=== PATIENT | female | born 1985 | race Two or more races ===

== ENCOUNTER 2017-02-10 23:13 | Observation (INO) | payer MEDICAID, OTHER | END 2017-02-11 00:13 | disposition home or self-care (01) | DRG 566 | LOC: LDRP 23:13 | PROVIDERS: ADMIT Specialist; ATTEND Specialist | DX: O26.893 Other specified pregnancy related conditions, third trimester (principal); O24.419 Gestational diabetes mellitus in pregnancy, unspecified control; M54.9 Dorsalgia, unspecified; R10.9 Unspecified abdominal pain; Z3A.34 34 weeks gestation of pregnancy | CPT/HCPCS: 59025; 81002; G0378 ==

== ENCOUNTER 2017-03-01 16:04 | Observation (INO) | payer MEDICAID | END 2017-03-01 17:30 | disposition home or self-care (01) | DRG 566 | LOC: LDRP 16:04 | PROVIDERS: ADMIT Specialist; ATTEND Specialist | DX: O26.893 Other specified pregnancy related conditions, third trimester (principal); R10.2 Pelvic and perineal pain; R07.81 Pleurodynia; O99.89 Other specified diseases and conditions complicating pregnancy, childbirth and the puerperium; M54.9 Dorsalgia, unspecified; Z3A.36 36 weeks gestation of pregnancy | CPT/HCPCS: 59025; 76818; 81002; G0378 ==

== ENCOUNTER 2017-03-08 01:43 | Observation (INO) | payer MEDICAID ==
[2017-03-08] MEDS ORDERED: TERBUTALINE SULFATE 1 MG/ML 1ML VIAL SC ONE (01:55)
[2017-03-08] MEDS ORDERED: LACTATED RINGER'S 1,000 ML IV ONE (01:59)
[2017-03-08] MEDS ORDERED: TERBUTALINE SULFATE 1 MG/ML 1ML VIAL SC SCH (02:00)
[2017-03-08 02:37] LABS: Basophils # (auto) 0.1 uL; Basophils % (auto) 0.9 % (0.0-2.0); DEFINITIVE VIEW TRANSMISSION; Eosinophils # (auto) 0.1 uL; Hematocrit 39.3 % (36.0-46.0); Hemoglobin 12.6 g/dL (12.2-16.2); Lymphocytes # (auto) 3.6 uL; Mean Corpuscular Hemoglobin 25.7 pg (28.0-32.0); Mean Corpuscular Volume 80.3 fL (80.0-100.0); Mean Platelet Volume 9.1 fL (7.4-10.4); Monocytes # (auto) 0.5 uL; Monocytes % (auto) 6.4 % (0.0-12.0); Neutrophils # (auto) 2.9 uL; Neutrophils % (auto) 39.7 % (37.0-80.0); Platelet Count (auto) 192 10^3/uL (140-450); White Blood Cell 7.2 10^3/uL (4.4-10.8)
[2017-03-08 02:49] LABS: Partial Thromboplastin Time 27.3 sec (22.64-33.71); Prothrombin Time 9.4 sec (9.37-12.3)
[2017-03-08 02:51] LABS: INR 0.87 (0.9-1.15)
[2017-03-08 02:57] LABS: Albumin 2.9 g/dL (3.4-5.0); BUN/Creatinine Ratio 15.3; Potassium 3.1 mmol/L (3.5-5.1)
[2017-03-08 03:00] LABS: Bilirubin, Total 0.2 mg/dL (0.2-1.0); Total Protein 6.8 g/dL (6.4-8.2)
== END 2017-03-08 03:55 | disposition home or self-care (01) | DRG 955 ==
LOC: LDRP 01:43
PROVIDERS: ADMIT Obstetrics & Gynecology; ATTEND Obstetrics & Gynecology
DX: O26.899 Other specified pregnancy related conditions, unspecified trimester (principal); Z3A.00 Weeks of gestation of pregnancy not specified
CPT/HCPCS: 36415; 59025; 76818; 80053; 85025; 85610; 85730; 86850; 86900; 86901; 96372; G0378; J3105

== ENCOUNTER 2017-03-09 04:08 | Inpatient (IN) | payer MEDICAID ==
[2017-03-09] VITALS (9 sets, daily range): BP systolic 110–119; BP diastolic 54–70
[~2017-03-09] VITALS: Ht 162.6 cm; Wt 59.0 kg
[2017-03-09 05:13] LABS: Urine Bilirubin Negative (Negative); Urine Blood Negative /uL (Negative); Urine Color Yellow (Yellow); Urine Glucose Normal (Normal); Urine Ketone TRACE (Negative); Urine Mucus FEW (None Seen); Urine Nitrite Negative (Negative); Urine RBC 7 /hpf (0 - 4); Urine Squamous Epithelial Cell MANY /hpf (<5)
[2017-03-09] MEDS ORDERED: fentaNYL CITRATE 100 MCG/2 ML VL ONE ×2 (05:50→07:13)
[2017-03-09] MEDS ORDERED: MORPHINE SULF(PF) 0.5MG/ML 10ML VIAL ONE (05:50)
[2017-03-09 06:07] LABS: Basophils # (auto) 0 uL; Basophils % (auto) 0.6 % (0.0-2.0); DEFINITIVE VIEW TRANSMISSION; Eosinophils # (auto) 0.1 uL; Eosinophils % (auto) 1.2 % (0.0-7.0); Hematocrit 35.8 % (36.0-46.0); Hemoglobin 11.7 g/dL (12.2-16.2); Lymphocytes % (auto) 38.9 % (10.0-50.0); Mean Corpuscular Hemoglobin 26.5 pg (28.0-32.0); Mean Corpuscular Hgb Conc. 32.8 g/dL (32.0-36.0); Mean Corpuscular Volume 80.6 fL (80.0-100.0); Mean Platelet Volume 8.6 fL (7.4-10.4); Monocytes # (auto) 0.3 uL; Monocytes % (auto) 5.5 % (0.0-12.0); Neutrophils # (auto) 2.8 uL; Neutrophils % (auto) 53.8 % (37.0-80.0); Platelet Count (auto) 207 10^3/uL (140-450); White Blood Cell 5.2 10^3/uL (4.4-10.8)
[2017-03-09 06:22] LABS: Partial Thromboplastin Time 28.2 sec (22.64-33.71); Prothrombin Time 9.6 sec (9.37-12.3)
[2017-03-09 06:23] LABS: Albumin 2.6 g/dL (3.4-5.0); BUN/Creatinine Ratio 12.1; Calcium 8.4 mg/dL (8.5-10.1); Potassium 3.7 mmol/L (3.5-5.1)
[2017-03-09 06:25] LABS: INR 0.89 (0.9-1.15)
[2017-03-09 06:26] LABS: Bilirubin, Total 0.4 mg/dL (0.2-1.0); Total Protein 6.3 g/dL (6.4-8.2)
[2017-03-09] MEDS ORDERED: SUCCINYLCHOLINE CHLORIDE 20 MG/ML 10ML VIAL IV ONE (06:55)
[2017-03-09] MEDS ORDERED: ROCURONIUM 10MG/ML 10ML VIAL IV ONE (07:13)
[2017-03-09] MEDS ORDERED: CARBOPROST TROMETHAMINE 250 MCG/1ML VIAL IM ONE (07:16)
[2017-03-09] MEDS ORDERED: OXYTOCIN 10 UNIT/ML 10ML VIAL ONE (07:23)
[2017-03-09] MEDS ORDERED: ceFAZolin 1GM VL ONE (07:23)
[2017-03-09] MEDS ORDERED: NEOSTIGMINE 1 MG/ML INJ (10mg/10ML VIAL) ONE (07:29)
[2017-03-09] MEDS ORDERED: GLYCOPYRROLATE 0.2 MG/ML 1ML VIAL ONE (07:29)
[2017-03-09] MEDS ORDERED: ONDANSETRON HCL 4 MG/2 ML VIAL ONE (07:39)
[2017-03-09] MEDS ORDERED: MORPHINE SULF INJ 2 MG/ML SYRINGE 1ML IV PRN (07:45)
[2017-03-09] MEDS: LACT. RINGERS/OXYTOCIN 20UNITS 1,000 ML IV SCH ×2 (07:45→14:25)
[2017-03-09] MEDS: HYDROmorphone HCL 2 MG/ML VL IV PRN ×7 (08:00→23:00)
[2017-03-09] MEDS ORDERED: METOCLOPRAMIDE HCL 5MG/ml INJ 2ml VIAL IV ONE (08:00)
[2017-03-09] MEDS: KETOROLAC TROMETH 30 MG/ML 1ML VIAL IV PRN ×2 (08:17→17:30)
[2017-03-09] MEDS ORDERED: OXYTOCIN 10UNIT/ML 1ML VIAL ONE (08:24)
[2017-03-09] MEDS: LACTATED RINGER'S 1,000 ML IV SCH ×3 (13:15→21:15)
[2017-03-09] MEDS: ONDANSETRON HCL 4 MG/2 ML VIAL IV PRN ×2 (15:14→20:19)
[2017-03-09] MEDS: ceFAZolin 1GM/50ML D5W 50 ML IV SCH ×2 (15:15→22:45)
[2017-03-09 18:02] LABS: Basophils # (auto) 0 uL; Basophils % (auto) 0.2 % (0.0-2.0); DEFINITIVE VIEW TRANSMISSION; Eosinophils # (auto) 0 uL; Eosinophils % (auto) 0.1 % (0.0-7.0); Hematocrit 34.5 % (36.0-46.0); Hemoglobin 11.3 g/dL (12.2-16.2); Lymphocytes # (auto) 1.8 uL; Lymphocytes % (auto) 20.2 % (10.0-50.0); Mean Corpuscular Hemoglobin 26.2 pg (28.0-32.0); Mean Corpuscular Hgb Conc. 32.8 g/dL (32.0-36.0); Mean Corpuscular Volume 79.9 fL (80.0-100.0); Mean Platelet Volume 8.6 fL (7.4-10.4); Monocytes # (auto) 0.4 uL; Monocytes % (auto) 5.1 % (0.0-12.0); Neutrophils # (auto) 6.5 uL; Neutrophils % (auto) 74.4 % (37.0-80.0); Platelet Count (auto) 210 10^3/uL (140-450); Red Cell Distribution Width 15.8 % (11.6-16.0); White Blood Cell 8.7 10^3/uL (4.4-10.8)
[2017-03-10] VITALS (11 sets, daily range): BP systolic 109–116; BP diastolic 57–75
[2017-03-10] MEDS: HYDROmorphone HCL 2 MG/ML VL IV PRN ×4 (02:04→08:26)
[2017-03-10] MEDS: LACTATED RINGER'S 1,000 ML IV SCH (04:02)
[2017-03-10 06:35] LABS: Basophils # (auto) 0 uL; Basophils % (auto) 0.4 % (0.0-2.0); DEFINITIVE VIEW TRANSMISSION; Eosinophils # (auto) 0 uL; Eosinophils % (auto) 0.4 % (0.0-7.0); Hemoglobin 10.9 g/dL (12.2-16.2); Lymphocytes # (auto) 2.2 uL; Lymphocytes % (auto) 24.5 % (10.0-50.0); Mean Corpuscular Hemoglobin 26.4 pg (28.0-32.0); Mean Corpuscular Hgb Conc. 32.9 g/dL (32.0-36.0); Mean Platelet Volume 8.2 fL (7.4-10.4); Monocytes # (auto) 0.4 uL; Monocytes % (auto) 4.3 % (0.0-12.0); Neutrophils # (auto) 6.2 uL; Neutrophils % (auto) 70.4 % (37.0-80.0); Platelet Count (auto) 221 10^3/uL (140-450); Red Cell Distribution Width 16.1 % (11.6-16.0); White Blood Cell 8.8 10^3/uL (4.4-10.8)
[2017-03-10] MEDS: ceFAZolin 1GM/50ML D5W 50 ML IV SCH (06:36)
[2017-03-10] MEDS ORDERED: HYDROcodone-ACET 5/325MG TAB PO PRN (09:15)
[2017-03-10] MEDS ORDERED: IBUPROFEN 800 MG TAB PO PRN (09:15)
[2017-03-10] MEDS: DOCUSATE SOD 100 MG CAP PO SCH ×2 (09:58→22:29)
[2017-03-10] MEDS: SIMETHICONE 80 MG CHEWABLE TABLET PO PRN ×2 (09:58→22:29)
[2017-03-10] MEDS: HYDROcodone-ACET 5/325MG TAB PO PRN ×2 (12:31→20:16)
[2017-03-11 00:30] VITALS: BP 112/67
[2017-03-11] MEDS: HYDROcodone-ACET 5/325MG TAB PO PRN ×2 (00:37→04:30)
[2017-03-11 04:00] VITALS: BP 108/63
[2017-03-11 08:30] VITALS: BP 111/55
[2017-03-11] MEDS: DOCUSATE SOD 100 MG CAP PO SCH (10:32)
[2017-03-11 12:30] VITALS: BP 121/69
== END 2017-03-11 15:10 | disposition home or self-care (01) | DRG 540 ==
LOC: OBSVTOIN 04:08 → LDRP 04:08
PROVIDERS: ADMIT Obstetrics & Gynecology; ATTEND Obstetrics & Gynecology
PROC: 10D00Z0 Extraction of Products of Conception, High, Open Approach (ICD-10-PCS; principal; 2017-03-09 06:10)
DX: O34.219 Maternal care for unspecified type scar from previous cesarean delivery (principal); O24.429 Gestational diabetes mellitus in childbirth, unspecified control; Z37.0 Single live birth; Z3A.37 37 weeks gestation of pregnancy; Z53.21 Procedure and treatment not carried out due to patient leaving prior to being seen by health care provider
CPT/HCPCS: 36415; 51702; 59025; 80053; 80307; 81001; 85025; 85610; 85730; 86850; 86900; 86901; 94762; 96361; 96366; 96374; 96375; J0330; J0690; J1885; J2405; J2590